=== PATIENT | male | born 1945 | race Caucasian/White ===

== ENCOUNTER 2017-04-23 10:38 | Emergency (ER) | payer BC, OTHER ==
[2017-04-23] MEDS ORDERED: GABA300C10 PO (14:24)
[2017-04-23] MEDS ORDERED: AMLO10TA2 PO (14:24)
== END 2017-04-23 11:04 ==
LOC: ED 10:48
DX: Z02.9 Encounter for administrative examinations, unspecified (principal)

== ENCOUNTER 2017-09-11 17:12 | Inpatient (IN) | payer MEDICARE, OTHER ==
[~2017-09-11] VITALS: Ht 177.8 cm; Wt 80.0 kg
[~2017-09-11 17:12] MED LIST: AMLO10TA2 PO; GABA300C10 PO; HYDR-3240 PO; LISI-170 PO
[2017-09-11] MEDS ORDERED: SODIUM CHLORIDE 0.9% 1,000 ML IV ONE (17:23)
[2017-09-11] MEDS ORDERED: NALOXONE 1 MG/ML, 2ML ONE (17:27)
[2017-09-11] MEDS ORDERED: SODIUM CHLORIDE FLUSH 10ML SYR IVF ONE (17:30)
[2017-09-11] MEDS ORDERED: NALOXONE 1 MG/ML, 2ML IVPush ONE (17:30)
[2017-09-11] MEDS ORDERED: ETOMIDATE 40 MG/20 ML IVPush ONE (17:30)
[2017-09-11] MEDS ORDERED: SUCCINYLCHOLINE 20 MG/ML, 10ML IVPush ONE (17:30)
[2017-09-11] MEDS ORDERED: PROPOFOL 100 ML IV PRN ×2 (17:38→19:49)
[2017-09-11] MEDS ORDERED: PROPOFOL 100 ML IV ONE (17:39)
[2017-09-11 17:53] LABS: ABG COLLECTION SITE LEFT RADIAL; COLLATERAL CIRCULATION TESTING NORMAL; HEMATOCRIT 43.6 % (39.2-51.8); HEMOGLOBIN 14.7 g/dL (13.7-18.0); WHITE BLOOD COUNT 21.2 x10^3/uL (3.4-10)
[2017-09-11] MEDS ORDERED: PROPOFOL 10 MG/ML, 20ML IVPush ONE (18:00)
[2017-09-11 18:03] LABS: BLOOD UREA NITROGEN 14 mg/dL (7-18)
[2017-09-11 18:06] LABS: ASPARTATE AMINO TRANSFERASE 21 U/L (15-37)
[2017-09-11 18:07] LABS: ACETAMINOPHEN < 2 mcg/mL (10-30)
[2017-09-11 18:18] LABS: DIFF TOTAL CELLS COUNTED 100 CELL DIFF
[2017-09-11] MEDS ORDERED: LABETALOL 5MG/ML, 20ML ONE (18:18)
[2017-09-11] MEDS ORDERED: PIPERACILLIN/TAZO/PMX 3.375GM 50 ML ONE (18:18)
[2017-09-11 18:19] LABS: IS PT STATUS REG ER OR PRE ER? YES
[2017-09-11 18:20] LABS: VERIFY COUNTS? YES
[2017-09-11] MEDS ORDERED: VANCOMYCIN 1,700 MG in SODIUM CHLORIDE 0.9% 250 ML IV ONE (18:30)
[2017-09-11] MEDS ORDERED: LABETALOL 5MG/ML, 20ML IVPush ONE (18:30)
[2017-09-11] MEDS ORDERED: VANCOMYCIN PER PHARMACY IV ONE (18:30)
[2017-09-11] MEDS ORDERED: PIPERACILLIN/TAZO/PMX 3.375GM 50 ML IVPB ONE (18:30)
[2017-09-11] MEDS ORDERED: AMLO5TAB2 PO (18:35)
[2017-09-11 18:56] LABS: DAU SCREEN DISCLAIMER
[2017-09-11] MEDS ORDERED: LEVETIRACETAM 1,000 MG in SODIUM CHLORIDE 0.9% 100 ML IV ONE (19:00)
[2017-09-11] MEDS ORDERED: BUDE10.2 INH (19:03)
[2017-09-11] MEDS ORDERED: METO-95 PO (19:05)
[2017-09-11] MEDS ORDERED: MAGN420T PO (19:05)
[2017-09-11] MEDS ORDERED: MULT-257 PO (19:06)
[2017-09-11] MEDS ORDERED: POTA20TA14 PO (19:07)
[2017-09-11] MEDS ORDERED: VALS320T2 PO (19:08)
[2017-09-11] MEDS ORDERED: TROS20TA2 PO (19:08)
[2017-09-11] MEDS ORDERED: ACETAMINOPHEN 650 MG SUPP ONE (19:25)
[2017-09-11] MEDS ORDERED: SENNA/DOCUSATE TABLET NG PRN (19:30)
[2017-09-11] MEDS: ENOXAPARIN 40 MG/0.4 ML SQ SCH (19:30)
[2017-09-11] MEDS ORDERED: ALBUTEROL/IPRATROPIUM 2.5MG/0.5MG, 3 ML INLINE SCH (19:30)
[2017-09-11] MEDS ORDERED: LACTULOSE 20 GM/30 ML UDC NG PRN (19:30)
[2017-09-11] MEDS: PIPERACILLIN/TAZO/PMX 3.375GM 50 ML IV SCH (19:30)
[2017-09-11] MEDS ORDERED: ACETAMINOPHEN 650 MG SUPP PR PRN (19:30)
[2017-09-11] MEDS: methylPREDNISolone SOD SUCC 125 MG/2 ML IVPush SCH (19:30)
[2017-09-11] MEDS: INSULIN ASPART 100 UNITS/ML, PEN SQ-INSULIN SCH (19:30)
[2017-09-11] MEDS ORDERED: DEXTROSE 4 GM TAB.CHEW PO PRN (19:30)
[2017-09-11] MEDS: SODIUM CHLORIDE 0.9% 1,000 ML IV SCH (19:30)
[2017-09-11] MEDS ORDERED: ACETAMINOPHEN 650 MG SUPP PR ONE (19:30)
[2017-09-11] MEDS ORDERED: ACETAMINOPHEN 650 MG/20.3 ML UDC NG PRN (19:30)
[2017-09-11] MEDS ORDERED: GLUCAGON 1 MG IM PRN (19:30)
[2017-09-11] MEDS ORDERED: DEXTROSE 50%, 50ML SYRINGE IVPush PRN (19:30)
[2017-09-11] MEDS ORDERED: BISACODYL 10 MG SUPP PR PRN (19:30)
[2017-09-11] MEDS ORDERED: PHARMACY MAY ADJ FOR RENAL FX MC SCH (19:30)
[2017-09-11] MEDS ORDERED: VANCOMYCIN PER PHARMACY MC PRN (19:30)
[2017-09-11] MEDS ORDERED: LIDOCAINE-MPF 1%, 2ML ENDO PRN (19:30)
[2017-09-11] MEDS ORDERED: SENNOSIDES 8.8 MG/5 ML ORAL SOL NG PRN (19:30)
[2017-09-11] MEDS: ALBUTEROL/IPRATROPIUM 2.5MG/0.5MG, 3 ML INLINE SCH (20:00)
[2017-09-11 20:21] LABS: GLUCOSE, CSF 103 mg/dL (40-80)
[2017-09-11] MEDS: SODIUM CHLORIDE FLUSH 10ML SYR IVF SCH (20:36)
[2017-09-11] MEDS ORDERED: ENOXAPARIN 40 MG/0.4 ML ONE (21:48)
[2017-09-11] MEDS ORDERED: methylPREDNISolone SOD SUCC 125 MG/2 ML ONE (21:48)
[2017-09-11] MEDS ORDERED: ALBUTEROL/IPRATROPIUM 2.5MG/0.5MG, 3 ML ONE (21:58)
[2017-09-12] MEDS ORDERED: ALBUTEROL/IPRATROPIUM 2.5MG/0.5MG, 3 ML ONE (02:15)
[2017-09-12] MEDS: INSULIN ASPART 100 UNITS/ML, PEN SQ-INSULIN SCH ×4 (03:00→20:42)
[2017-09-12 04:00] VITALS: BP 146/78
[2017-09-12] MEDS: methylPREDNISolone SOD SUCC 125 MG/2 ML IVPush SCH ×5 (04:00→21:50)
[2017-09-12] MEDS: ALBUTEROL/IPRATROPIUM 2.5MG/0.5MG, 3 ML INLINE SCH ×7 (04:08→21:37)
[2017-09-12 04:45] LABS: HEMATOCRIT 41.9 % (39.2-51.8); HEMOGLOBIN 14.2 g/dL (13.7-18.0); WHITE BLOOD COUNT 9.9 x10^3/uL (3.4-10)
[2017-09-12] MEDS: SODIUM CHLORIDE 0.9% 1,000 ML IV SCH ×3 (04:49→22:43)
[2017-09-12] MEDS: PIPERACILLIN/TAZO/PMX 3.375GM 50 ML IV SCH ×4 (04:50→21:50)
[2017-09-12 04:55] LABS: BLOOD UREA NITROGEN 14 mg/dL (7-18)
[2017-09-12] MEDS ORDERED: PHARMACOKINETIC MONITORING MC PRN (05:00)
[2017-09-12] MEDS ORDERED: PHARMACOKINETIC CONSULTATION MC ONE (05:00)
[2017-09-12 05:04] LABS: DIFF TOTAL CELLS COUNTED 100 CELL DIFF
[2017-09-12 05:05] LABS: ABG COLLECTION SITE LEFT RADIAL; COLLATERAL CIRCULATION TESTING NORMAL
[2017-09-12 05:08] LABS: VERIFY COUNTS? YES
[2017-09-12 05:09] LABS: ANISOCYTOSIS 1+
[2017-09-12] MEDS: TEMPLATE NON-FORMULARY MED. (Trospium Chloride 20 MG) HOMEMEDPO SCH (09:00)
[2017-09-12] MEDS: METOPROLOL SUCCINATE 50 MG TAB.ER.24H PO SCH (09:00)
[2017-09-12] MEDS: VALSARTAN 320 MG TABLET PO SCH (09:52)
[2017-09-12] MEDS: PANTOPRAZOLE 40 MG IV IV SCH (09:52)
[2017-09-12] MEDS: SODIUM CHLORIDE FLUSH 10ML SYR IVF SCH ×2 (09:52→20:42)
[2017-09-12] MEDS: AMLODIPINE 2.5 MG TABLET PO SCH (09:52)
[2017-09-12] MEDS ORDERED: PROPOFOL 10 MG/ML, 100ML IV ONE (11:18)
[2017-09-12] MEDS ORDERED: SUCCINYLCHOLINE 20 MG/ML, 10ML ONE (11:18)
[2017-09-12] MEDS ORDERED: ETOMIDATE 20 MG/10 ML ONE (11:18)
[2017-09-12] MEDS ORDERED: GADOBUTROL 7.5 MMOL/7.5 ML PFS ONE (12:03)
[2017-09-12] MEDS: PROPOFOL 100 ML IV PRN ×2 (12:30→20:24)
[2017-09-12] MEDS: VANCOMYCIN 1,600 MG in SODIUM CHLORIDE 0.9% 250 ML IV SCH (12:51)
[2017-09-12] MEDS ORDERED: MIDAZOLAM 1 MG/ML, 5ML IVPush ONE (19:00)
[2017-09-12] MEDS: ENOXAPARIN 40 MG/0.4 ML SQ SCH (19:23)
[2017-09-13] MEDS: ALBUTEROL/IPRATROPIUM 2.5MG/0.5MG, 3 ML INLINE SCH ×2 (02:00→06:35)
[2017-09-13] MEDS: PROPOFOL 100 ML IV PRN ×2 (02:03→05:18)
[2017-09-13] MEDS: INSULIN ASPART 100 UNITS/ML, PEN SQ-INSULIN SCH ×4 (03:33→20:41)
[2017-09-13] MEDS: methylPREDNISolone SOD SUCC 125 MG/2 ML IVPush SCH ×4 (04:12→22:59)
[2017-09-13] MEDS: PIPERACILLIN/TAZO/PMX 3.375GM 50 ML IV SCH (04:12)
[2017-09-13 04:20] VITALS: BP 112/62
[2017-09-13 04:42] LABS: ABG COLLECTION SITE LEFT RADIAL; COLLATERAL CIRCULATION TESTING NORMAL
[2017-09-13 04:47] LABS: HEMATOCRIT 35.8 % (39.2-51.8); HEMOGLOBIN 12.2 g/dL (13.7-18.0); WHITE BLOOD COUNT 13.1 x10^3/uL (3.4-10)
[2017-09-13 04:54] LABS: BLOOD UREA NITROGEN 20 mg/dL (7-18)
[2017-09-13] MEDS: SODIUM CHLORIDE 0.9% 1,000 ML IV SCH ×2 (05:16→17:08)
[2017-09-13] MEDS: VANCOMYCIN 1,600 MG in SODIUM CHLORIDE 0.9% 250 ML IV SCH (05:56)
[2017-09-13] MEDS ORDERED: POTASSIUM CHLORIDE 40 MEQ in SODIUM CHLORIDE 0.9% 500 ML IV ONE (06:00)
[2017-09-13] MEDS ORDERED: MAGNESIUM SULFATE PMX 4GM/100M 100 ML IV ONE (07:30)
[2017-09-13] MEDS: TEMPLATE NON-FORMULARY MED. (Trospium Chloride 20 MG) HOMEMEDPO SCH (09:00)
[2017-09-13] MEDS: METOPROLOL SUCCINATE 50 MG TAB.ER.24H PO SCH (09:00)
[2017-09-13] MEDS: PANTOPRAZOLE 40 MG IV IV SCH (09:22)
[2017-09-13] MEDS: SODIUM CHLORIDE FLUSH 10ML SYR IVF SCH ×2 (09:23→20:41)
[2017-09-13] MEDS ORDERED: CEFTRIAXONE PMX 1GM/50ML 50 ML IV SCH (10:00)
[2017-09-13] MEDS: VALSARTAN 320 MG TABLET PO SCH (12:55)
[2017-09-13] MEDS: AMLODIPINE 2.5 MG TABLET PO SCH (12:56)
[2017-09-13] MEDS: CEFTRIAXONE PMX 1GM/50ML 50 ML IV SCH (12:56)
[2017-09-13] MEDS ORDERED: POTASSIUM CHLORIDE 20 MEQ TAB.ER.PRT PO ONE (18:00)
[2017-09-13] MEDS: ENOXAPARIN 40 MG/0.4 ML SQ SCH (19:21)
[2017-09-13] MEDS ORDERED: QUETIAPINE 25MG TABLET PO SCH (21:00)
[2017-09-14] MEDS: SODIUM CHLORIDE 0.9% 1,000 ML IV SCH ×3 (00:09→18:06)
[2017-09-14] MEDS: INSULIN ASPART 100 UNITS/ML, PEN SQ-INSULIN SCH ×3 (02:58→15:00)
[2017-09-14 04:09] VITALS: BP 138/71
[2017-09-14] MEDS: methylPREDNISolone SOD SUCC 125 MG/2 ML IVPush SCH (04:30)
[2017-09-14 04:45] LABS: HEMATOCRIT 37.6 % (39.2-51.8); HEMOGLOBIN 12.8 g/dL (13.7-18.0); WHITE BLOOD COUNT 14.1 x10^3/uL (3.4-10)
[2017-09-14 04:56] LABS: ABG COLLECTION SITE LEFT RADIAL; COLLATERAL CIRCULATION TESTING NORMAL
[2017-09-14 05:02] LABS: BLOOD UREA NITROGEN 17 mg/dL (7-18)
[2017-09-14] MEDS: TEMPLATE NON-FORMULARY MED. (Trospium Chloride 20 MG) HOMEMEDPO SCH (08:13)
[2017-09-14] MEDS: PANTOPRAZOLE 40 MG IV IV SCH (08:15)
[2017-09-14] MEDS: METOPROLOL SUCCINATE 50 MG TAB.ER.24H PO SCH (08:15)
[2017-09-14] MEDS: SODIUM CHLORIDE FLUSH 10ML SYR IVF SCH ×2 (08:15→19:37)
[2017-09-14] MEDS: AMLODIPINE 2.5 MG TABLET PO SCH (08:15)
[2017-09-14] MEDS: VALSARTAN 320 MG TABLET PO SCH (08:15)
[2017-09-14] MEDS: CEFTRIAXONE PMX 1GM/50ML 50 ML IV SCH (10:49)
[2017-09-14] MEDS: methylPREDNISolone SOD SUCC 40 MG/ML IVPush SCH ×2 (13:39→19:36)
[2017-09-14 16:36] VITALS: BP 149/80
[2017-09-14] MEDS: ENOXAPARIN 40 MG/0.4 ML SQ SCH (19:37)
[2017-09-14 20:00] VITALS: BP 158/82
[2017-09-14] MEDS: LORazepam 2 MG/ML, 1ML IVPush PRN ×2 (20:30→23:50)
[2017-09-14] MEDS ORDERED: INSULIN ASPART 100 UNITS/ML, PEN SQ-INSULIN SCH (21:00)
[2017-09-15 02:30] VITALS: BP 153/90
[2017-09-15] MEDS: methylPREDNISolone SOD SUCC 40 MG/ML IVPush SCH (04:20)
[2017-09-15 05:25] LABS: HEMATOCRIT 39.9 % (39.2-51.8); HEMOGLOBIN 13.5 g/dL (13.7-18.0); WHITE BLOOD COUNT 11.8 x10^3/uL (3.4-10)
[2017-09-15 05:30] LABS: BLOOD UREA NITROGEN 23 mg/dL (7-18)
[2017-09-15 07:24] VITALS: BP 166/94
[2017-09-15] MEDS: SODIUM CHLORIDE 0.9% 1,000 ML IV SCH ×2 (09:11→16:04)
[2017-09-15] MEDS: TEMPLATE NON-FORMULARY MED. (Trospium Chloride 20 MG) HOMEMEDPO SCH (09:13)
[2017-09-15] MEDS: METOPROLOL SUCCINATE 50 MG TAB.ER.24H PO SCH (09:13)
[2017-09-15] MEDS: VALSARTAN 320 MG TABLET PO SCH (09:13)
[2017-09-15] MEDS: CEFTRIAXONE PMX 1GM/50ML 50 ML IV SCH (09:13)
[2017-09-15] MEDS: SODIUM CHLORIDE FLUSH 10ML SYR IVF SCH ×2 (09:13→19:30)
[2017-09-15] MEDS: AMLODIPINE 2.5 MG TABLET PO SCH (09:13)
[2017-09-15] MEDS ORDERED: POTASSIUM CHLORIDE 20 MEQ TAB.ER.PRT PO ONE (11:00)
[2017-09-15 14:05] VITALS: BP 145/87
[2017-09-15] MEDS: ENOXAPARIN 40 MG/0.4 ML SQ SCH (19:29)
[2017-09-15] MEDS ORDERED: LACTULOSE 20 GM/30 ML UDC NG PRN ×2 (19:30)
[2017-09-15] MEDS ORDERED: DEXTROSE 50%, 50ML SYRINGE IVPush PRN ×2 (19:30)
[2017-09-15] MEDS ORDERED: BISACODYL 10 MG SUPP PR PRN ×2 (19:30)
[2017-09-15] MEDS ORDERED: SENNA/DOCUSATE TABLET NG PRN ×2 (19:30)
[2017-09-15] MEDS ORDERED: ACETAMINOPHEN 650 MG/20.3 ML UDC NG PRN ×2 (19:30)
[2017-09-15] MEDS ORDERED: ACETAMINOPHEN 650 MG SUPP PR PRN ×2 (19:30)
[2017-09-15 19:42] VITALS: BP 173/92
[2017-09-16 01:16] VITALS: BP 164/83
[2017-09-16 06:01] LABS: HEMATOCRIT 44.1 % (39.2-51.8); HEMOGLOBIN 14.8 g/dL (13.7-18.0)
[2017-09-16 06:23] LABS: BLOOD UREA NITROGEN 27 mg/dL (7-18)
[2017-09-16 07:30] VITALS: BP 155/85
[2017-09-16] MEDS ORDERED: POTASSIUM CHLORIDE 20 MEQ TAB.ER.PRT PO ONE (07:30)
[2017-09-16] MEDS ORDERED: MAGNESIUM SULFATE PMX 2GM/50ML 50 ML IV ONE (07:30)
[2017-09-16] MEDS: VALSARTAN 320 MG TABLET PO SCH (08:44)
[2017-09-16] MEDS: METOPROLOL SUCCINATE 50 MG TAB.ER.24H PO SCH (08:44)
[2017-09-16] MEDS: TEMPLATE NON-FORMULARY MED. (Trospium Chloride 20 MG) HOMEMEDPO SCH (08:45)
[2017-09-16] MEDS: SODIUM CHLORIDE FLUSH 10ML SYR IVF SCH ×2 (08:45→20:35)
[2017-09-16] MEDS: AMLODIPINE 5 MG TABLET PO SCH (08:45)
[2017-09-16] MEDS ORDERED: AMLODIPINE 5 MG TABLET PO SCH (09:00)
[2017-09-16] MEDS: CEFTRIAXONE PMX 1GM/50ML 50 ML IV SCH (11:01)
[2017-09-16 12:34] VITALS: BP 158/79
[2017-09-16] MEDS: DOXAZOSIN 2MG TABLET PO SCH (20:28)
[2017-09-16] MEDS: ENOXAPARIN 40 MG/0.4 ML SQ SCH (20:35)
[2017-09-17 01:30] VITALS: BP 134/78
[2017-09-17 04:42] LABS: HEMATOCRIT 38.1 % (39.2-51.8); WHITE BLOOD COUNT 6.3 x10^3/uL (3.4-10)
[2017-09-17 04:45] LABS: BLOOD UREA NITROGEN 25 mg/dL (7-18)
[2017-09-17 07:08] VITALS: BP 125/64
[2017-09-17] MEDS: TEMPLATE NON-FORMULARY MED. (Trospium Chloride 20 MG) HOMEMEDPO SCH (09:00)
[2017-09-17] MEDS: AMLODIPINE 5 MG TABLET PO SCH (10:43)
[2017-09-17] MEDS: VALSARTAN 320 MG TABLET PO SCH (10:43)
[2017-09-17] MEDS: SODIUM CHLORIDE FLUSH 10ML SYR IVF SCH ×2 (10:43→21:50)
[2017-09-17] MEDS: METOPROLOL SUCCINATE 50 MG TAB.ER.24H PO SCH (10:43)
[2017-09-17] MEDS: CEFTRIAXONE PMX 1GM/50ML 50 ML IV SCH (11:42)
[2017-09-17 13:11] VITALS: BP 131/76
[2017-09-17 13:39] VITALS: BP 135/86
[2017-09-17 20:00] VITALS: BP 137/88
[2017-09-17] MEDS ORDERED: ENOXAPARIN 40 MG/0.4 ML SQ SCH (20:00)
[2017-09-17] MEDS: DOXAZOSIN 2MG TABLET PO SCH (21:50)
[2017-09-18 01:10] VITALS: BP 129/82
[2017-09-18 04:45] LABS: HEMATOCRIT 38.7 % (39.2-51.8); HEMOGLOBIN 13.1 g/dL (13.7-18.0)
[2017-09-18 04:55] LABS: BLOOD UREA NITROGEN 22 mg/dL (7-18)
[2017-09-18] MEDS ORDERED: MAGNESIUM SULFATE PMX 4GM/100M 100 ML IV ONE (07:30)
[2017-09-18 07:43] VITALS: BP 163/92
[2017-09-18] MEDS ORDERED: POTASSIUM CHLORIDE 20 MEQ TAB.ER.PRT PO SCH (08:00)
[2017-09-18] MEDS: VALSARTAN 320 MG TABLET PO SCH (08:40)
[2017-09-18] MEDS: AMLODIPINE 5 MG TABLET PO SCH (08:40)
[2017-09-18] MEDS: SODIUM CHLORIDE FLUSH 10ML SYR IVF SCH (08:41)
[2017-09-18] MEDS: TEMPLATE NON-FORMULARY MED. (Trospium Chloride 20 MG) HOMEMEDPO SCH (08:41)
[2017-09-18] MEDS: METOPROLOL SUCCINATE 50 MG TAB.ER.24H PO SCH (08:41)
[2017-09-18] MEDS ORDERED: ENOX40SY4 SQ (11:42)
[2017-09-18] MEDS ORDERED: DOXA2TAB9 PO (11:42)
[2017-09-18] MEDS ORDERED: AMLO5TAB2 PO (11:42)
[2017-09-18] MEDS ORDERED: METO-93 PO (11:42)
[2017-09-18] MEDS ORDERED: CEFD300C37 PO (11:43)
[2017-09-18] MEDS: CEFTRIAXONE PMX 1GM/50ML 50 ML IV SCH (12:00)
[2017-09-18 12:56] VITALS: BP 142/83
== END 2017-09-18 19:00 | DRG 208 ==
LOC: ED 19:05 → SUATTDRO 19:06 → EDIP 19:10 → ED 19:17 → CCU 09-12 04:01 → 4NOR 09-14 16:04 → 3NW 09-16 19:15
PROVIDERS: ADMIT Hospitalist; ATTEND Hospitalist
PROC: 0BH17EZ Insertion of Endotracheal Airway into Trachea, Via Natural or Artificial Opening (ICD-10-PCS; principal; 2017-09-11)
PROC: 5A1945Z Respiratory Ventilation, 24-96 Consecutive Hours (ICD-10-PCS; 2017-09-11)
PROC: 009U3ZX Drainage of Spinal Canal, Percutaneous Approach, Diagnostic (ICD-10-PCS; 2017-09-11)
PROC: 0T9B70Z Drainage of Bladder with Drainage Device, Via Natural or Artificial Opening (ICD-10-PCS; 2017-09-11)
DX: J96.01 Acute respiratory failure with hypoxia (principal); J14 Pneumonia due to Hemophilus influenzae; Z99.11 Dependence on respirator [ventilator] status; E87.4 Mixed disorder of acid-base balance; I67.4 Hypertensive encephalopathy; I67.89 Other cerebrovascular disease; R65.10 Systemic inflammatory response syndrome (SIRS) of non-infectious origin without acute organ dysfunction; R56.9 Unspecified convulsions; J44.0 Chronic obstructive pulmonary disease with (acute) lower respiratory infection; D75.89 Other specified diseases of blood and blood-forming organs; E04.1 Nontoxic single thyroid nodule; E78.5 Hyperlipidemia, unspecified; F17.210 Nicotine dependence, cigarettes, uncomplicated; I11.9 Hypertensive heart disease without heart failure; I16.0 Hypertensive urgency; N40.0 Benign prostatic hyperplasia without lower urinary tract symptoms; Z85.820 Personal history of malignant melanoma of skin; Z86.73 Personal history of transient ischemic attack (TIA), and cerebral infarction without residual deficits; F10.20 Alcohol dependence, uncomplicated; J32.9 Chronic sinusitis, unspecified
CPT/HCPCS: 31500; 36415; 36600; 62270; 70450; 70553; 71010; 80048; 80053; 80307; 80329; 81001; 82140; 82550; 82607; 82746; 82803; 82945; 82962; 83605; 83735; 83880; 84157; 84439; 84443; 84478; 84484; 85025; 85610; 85730; 87040; 87070; 87081; 87205; 87252; 89051; 93005; 93306; 94002; 94003; 94150; 94640; 96361; 96365; 96367; 96375; A9585; J0696; J1650; J1815; J1953; J2250; J2543; J2704; J3370; J3480; J7620; C9113; G0479; G0480; J0330; J2060; J2310; J2920; J2930; J3475; J7030; J7040; J7050

== ENCOUNTER 2018-07-08 16:47 | Inpatient (IN) | payer MEDICARE, OTHER ==
[~2018-07-08] VITALS: Ht 182.9 cm; Wt 84.3 kg
[~2018-07-08 16:47] MED LIST changes: +AMLO5TAB2 PO; +BUDE10.2 INH; +CEFD300C37 PO; +DOXA2TAB9 PO; +ENOX40SY4 SQ; +ETOMIDATE 20 MG/10 ML ONE; +MAGN420T PO; +METO-93 PO; +METO-95 PO; +MULT-257 PO; +POTA20TA14 PO; +PROPOFOL 10 MG/ML, 100ML IV ONE; +SUCCINYLCHOLINE 20 MG/ML, 10ML ONE; +TROS20TA2 PO; +VALS320T2 PO
[2018-07-08] MEDS ORDERED: VIT1TABL46 PO (17:50)
[2018-07-08] MEDS ORDERED: ASPI-496 PO (17:50)
[2018-07-08] MEDS ORDERED: FLUO30CR TP (17:50)
[2018-07-08] MEDS ORDERED: SODIUM CHLORIDE 0.9% 1,000 ML IV ONE (19:08)
[2018-07-08 20:00] LABS: BASOPHILS # (AUTO) 0.03 x10^3/uL (0-0.1); BASOPHILS % (AUTO) 0 % (0-1); EOSINOPHILS % (AUTO) 0 % (1-7); LYMPHOCYTES # (AUTO) 0.36 x10^3/uL (1-3.4); LYMPHOCYTES % (AUTO) 4 % (22-44); MD NO; MEAN CORPUSCULAR HEMOGLOBIN 36.2 pg (27.5-34.5); MEAN CORPUSCULAR HGB CONC 34.2 g/dL (33.2-36.2); MEAN CORPUSCULAR VOLUME 105.8 fL (81-97); MEAN PLATELET VOLUME 7.5 fL (7.4-10.4); MONOCYTES % (AUTO) 5 % (2-9); NEUTROPHILS # (AUTO) 8.17 x10^3/uL (1.8-6.8); NEUTROPHILS % (AUTO) 91 % (42-75); PLATELET COUNT 235 x10^3/uL (130-400); RED BLOOD COUNT 3.37 x10^6/uL (4.38-5.82); RED CELL DISTRIBUTION WIDTH 18.1 % (9.4-14.8)
[2018-07-08 20:01] LABS: INTERNATIONAL NORMALIZED RATIO 0.93 (0.93-1.1); PROTHROMBIN TIME 9.6 Seconds (9.6-11.5)
[2018-07-08 20:02] LABS: ALANINE AMINOTRANSFERASE 54 U/L (12-78); ANION GAP 12 mmol/L (5-15); CALCIUM 7.7 mg/dL (8.5-10.1); CHLORIDE 103 mmol/L (98-107); CREATININE 1.11 mg/dL (0.7-1.3)
[2018-07-08 20:06] LABS: ALKALINE PHOSPHATASE 107 U/L (45-117); BILIRUBIN,TOTAL 1.4 mg/dL (0.2-1.0); TOTAL PROTEIN 6.5 g/dL (6.4-8.2); TROPONIN I < 0.015 ng/mL (0.000-0.045)
[2018-07-08 21:17] LABS: CULTURE INDICATED? NO; MICROSCOPIC INDICATED
[2018-07-08] MEDS ORDERED: ASPIRIN 325 MG TABLET PO STA (21:29)
[2018-07-09] MEDS: LORazepam 2 MG/ML, 1ML IV PRN (01:22)
[2018-07-09] MEDS ORDERED: THIAMINE 100 MG in SODIUM CHLORIDE 0.9% 50 ML IV ONE (01:30)
[2018-07-09] MEDS ORDERED: ACETAMINOPHEN 325 MG TABLET PO PRN (01:30)
[2018-07-09] MEDS ORDERED: DEXTROSE 50%, 50ML SYRINGE IVPush ONE (01:30)
[2018-07-09 01:46] VITALS: BP 171/102
[2018-07-09] MEDS: LEVETIRACETAM 1,000 MG in SODIUM CHLORIDE 0.9% 100 ML IV SCH ×2 (01:52→16:30)
[2018-07-09] MEDS: SODIUM CHLORIDE 0.9% 1,000 ML IV SCH ×2 (01:52→17:50)
[2018-07-09] MEDS ORDERED: PHARMACOKINETIC MONITORING MC PRN (02:00)
[2018-07-09] MEDS ORDERED: PHARMACOKINETIC CONSULTATION MC ONE (02:00)
[2018-07-09] MEDS ORDERED: VANCOMYCIN PER PHARMACY MC PRN (02:00)
[2018-07-09 02:01] VITALS: BP 154/89
[2018-07-09] MEDS: PIPERACILLIN/TAZO/PMX 3.375GM 50 ML IV SCH ×2 (02:19→10:00)
[2018-07-09] MEDS: VANCOMYCIN 1,300 MG in SODIUM CHLORIDE 0.9% 250 ML IV SCH (02:25)
[2018-07-09 02:27] VITALS: BP 170/97
[2018-07-09] MEDS ORDERED: SODIUM CHLORIDE 0.9% 1,000ML IVBOLUS ONE (05:00)
[2018-07-09] MEDS: ASPIRIN 325 MG TABLET EC PO SCH (06:00)
[2018-07-09] MEDS ORDERED: ASPI-621 PO (06:38)
[2018-07-09] MEDS ORDERED: AMLO5TAB2 PO (06:38)
[2018-07-09] MEDS ORDERED: METO-290 PO (06:38)
[2018-07-09 06:43] VITALS: BP 138/77
[2018-07-09 06:55] LABS: AMPHETAMINE SCREEN, URINE Negative (Negative); BARBITURATE SCREEN, URINE Negative (Negative); BENZODIAZEPINE SCREEN, URINE Negative (Negative); CANNABINOID SCREEN, URINE Negative (Negative); COCAINE SCREEN, URINE Negative (Negative); METHADONE SCREEN, URINE Negative (Negative); OPIATE SCREEN, URINE Negative (Negative)
[2018-07-09] MEDS: ASPIRIN 81 MG TABLET CHEW PO/NG SCH (08:06)
[2018-07-09 12:09] VITALS: BP 131/78
[2018-07-09 19:57] VITALS: BP 179/102
[2018-07-09] MEDS: ATORVASTATIN 40 MG TABLET PO SCH (20:19)
[2018-07-10] VITALS (12 sets, daily range): BP systolic 121–181; BP diastolic 51–100
[2018-07-10] MEDS: LEVETIRACETAM 1,000 MG in SODIUM CHLORIDE 0.9% 100 ML IV SCH ×2 (02:04→13:46)
[2018-07-10] MEDS: VANCOMYCIN 1,300 MG in SODIUM CHLORIDE 0.9% 250 ML IV SCH (02:28)
[2018-07-10] MEDS: ASPIRIN 325 MG TABLET EC PO SCH (05:09)
[2018-07-10 06:00] LABS: BASOPHILS # (AUTO) 0.02 x10^3/uL (0-0.1); BASOPHILS % (AUTO) 0 % (0-1); EOSINOPHILS # (AUTO) 0.03 x10^3/uL (0-0.4); EOSINOPHILS % (AUTO) 1 % (1-7); LYMPHOCYTES # (AUTO) 1.19 x10^3/uL (1-3.4); LYMPHOCYTES % (AUTO) 19 % (22-44); MD NO; MEAN CORPUSCULAR HEMOGLOBIN 36.2 pg (27.5-34.5); MEAN CORPUSCULAR HGB CONC 33.9 g/dL (33.2-36.2); MEAN CORPUSCULAR VOLUME 106.7 fL (81-97); MEAN PLATELET VOLUME 7.3 fL (7.4-10.4); MONOCYTES # (AUTO) 0.51 x10^3/uL (0.2-0.8); MONOCYTES % (AUTO) 8 % (2-9); NEUTROPHILS # (AUTO) 4.46 x10^3/uL (1.8-6.8); NEUTROPHILS % (AUTO) 72 % (42-75); PLATELET COUNT 168 x10^3/uL (130-400); RED BLOOD COUNT 2.83 x10^6/uL (4.38-5.82); RED CELL DISTRIBUTION WIDTH 18.6 % (9.4-14.8)
[2018-07-10 06:12] LABS: ANION GAP 11 mmol/L (5-15); CALCIUM 7.3 mg/dL (8.5-10.1); CHLORIDE 107 mmol/L (98-107); CHOLESTEROL, TOTAL 129 mg/dL (140-239); CREATININE 0.67 mg/dL (0.7-1.3); TRIGLYCERIDES 86 mg/dL (50-200); VLDL CHOLESTEROL 17 mg/dL (0-25)
[2018-07-10 06:14] LABS: CHOL/HDL RATIO 1.6; HDL CHOL % 64 % (26-37); HDL CHOLESTEROL (DIRECT) 83 mg/dL (40-60); LDL CHOLESTEROL,CALCULATED 29 mg/dL (54-169); LDL/HDL RATIO 0.3 (0.5-3.0)
[2018-07-10] MEDS: ASPIRIN 81 MG TABLET CHEW PO/NG SCH (08:31)
[2018-07-10] MEDS: SODIUM CHLORIDE 0.9% 1,000 ML IV SCH (09:47)
[2018-07-10] MEDS: POTASSIUM CHLORIDE 20 MEQ TAB.ER.PRT PO SCH ×3 (14:23→18:30)
[2018-07-10] MEDS: ATORVASTATIN 40 MG TABLET PO SCH (21:00)
[2018-07-10] MEDS ORDERED: LEVETIRACETAM 500 MG TABLET PO SCH (21:00)
[2018-07-10] MEDS: LEVETIRACETAM 500 MG in SODIUM CHLORIDE 0.9% 100 ML IV SCH (22:00)
[2018-07-10] MEDS ORDERED: POTASSIUM CHLORIDE 40 MEQ in SODIUM CHLORIDE 0.9% 500 ML IV ONE (23:30)
[2018-07-11] VITALS (9 sets, daily range): BP systolic 145–205; BP diastolic 85–118
[2018-07-11] MEDS: VANCOMYCIN 1,300 MG in SODIUM CHLORIDE 0.9% 250 ML IV SCH (02:23)
[2018-07-11] MEDS: LABETALOL 5MG/ML, 20ML IVPush PRN ×2 (02:51→05:44)
[2018-07-11] MEDS: ASPIRIN 325 MG TABLET EC PO SCH (05:38)
[2018-07-11 05:45] LABS: CHLORIDE 113 mmol/L (98-107)
[2018-07-11 05:57] LABS: ANION GAP 10 mmol/L (5-15); CREATININE 1.06 mg/dL (0.7-1.3)
[2018-07-11] MEDS: ENALAPRILAT 1.25 MG/ML, 2ML IV PRN ×2 (07:41→12:53)
[2018-07-11] MEDS: SODIUM CHLORIDE 0.45% 1,000 ML IV SCH ×2 (07:44→17:58)
[2018-07-11] MEDS: LEVETIRACETAM 500 MG in SODIUM CHLORIDE 0.9% 100 ML IV SCH ×2 (11:45→23:06)
[2018-07-11] MEDS: ASPIRIN 81 MG TABLET CHEW PO/NG SCH (11:45)
[2018-07-11] MEDS ORDERED: PHARMACOKINETIC MONITORING MC PRN (17:00)
[2018-07-11] MEDS ORDERED: VANCOMYCIN PER PHARMACY MC PRN (17:00)
[2018-07-11] MEDS ORDERED: BISACODYL 10 MG SUPP PR PRN (19:00)
[2018-07-11] MEDS ORDERED: POLYETHYLENE GLYCOL 17 GM PACKET NG PRN (19:00)
[2018-07-11] MEDS: ATORVASTATIN 40 MG TABLET PO SCH (20:28)
[2018-07-12 00:29] VITALS: BP 175/101
[2018-07-12] MEDS: ENALAPRILAT 1.25 MG/ML, 2ML IV PRN ×2 (02:04→10:52)
[2018-07-12] MEDS: SODIUM CHLORIDE 0.45% 1,000 ML IV SCH ×2 (02:10→10:50)
[2018-07-12] MEDS ORDERED: VANCOMYCIN 1,300 MG in SODIUM CHLORIDE 0.9% 250 ML IV SCH (02:30)
[2018-07-12] MEDS ORDERED: LORazepam 2 MG/ML, 1ML IVPush PRN (02:30)
[2018-07-12 04:05] LABS: BASOPHILS # (AUTO) 0.02 x10^3/uL (0-0.1); BASOPHILS % (AUTO) 0 % (0-1); EOSINOPHILS # (AUTO) 0.04 x10^3/uL (0-0.4); EOSINOPHILS % (AUTO) 1 % (1-7); LYMPHOCYTES % (AUTO) 17 % (22-44); MD NO; MEAN CORPUSCULAR HEMOGLOBIN 36.5 pg (27.5-34.5); MEAN CORPUSCULAR HGB CONC 34.2 g/dL (33.2-36.2); MEAN CORPUSCULAR VOLUME 106.8 fL (81-97); MEAN PLATELET VOLUME 7.7 fL (7.4-10.4); MONOCYTES % (AUTO) 11 % (2-9); NEUTROPHILS # (AUTO) 4.49 x10^3/uL (1.8-6.8); NEUTROPHILS % (AUTO) 71 % (42-75); PLATELET COUNT 184 x10^3/uL (130-400); RED BLOOD COUNT 2.95 x10^6/uL (4.38-5.82); RED CELL DISTRIBUTION WIDTH 18.1 % (9.4-14.8)
[2018-07-12 05:00] LABS: ALANINE AMINOTRANSFERASE 53 U/L (12-78); ALBUMIN 2.4 g/dL (3.4-5.0); ANION GAP 7 mmol/L (5-15); CALCIUM 7.9 mg/dL (8.5-10.1); CHLORIDE 109 mmol/L (98-107)
[2018-07-12 05:02] LABS: ALKALINE PHOSPHATASE 80 U/L (45-117); BILIRUBIN,TOTAL 0.7 mg/dL (0.2-1.0); CREATININE 1.19 mg/dL (0.7-1.3); TOTAL PROTEIN 5.4 g/dL (6.4-8.2)
[2018-07-12 07:57] VITALS: BP 170/98
[2018-07-12] MEDS: ASPIRIN 81 MG TABLET CHEW PO/NG SCH (09:00)
[2018-07-12 10:50] VITALS: BP 182/98
[2018-07-12] MEDS: LEVETIRACETAM 500 MG in SODIUM CHLORIDE 0.9% 100 ML IV SCH (10:50)
[2018-07-12] MEDS: LORazepam 2 MG/ML, 1ML IV PRN (11:17)
[2018-07-12 11:26] VITALS: BP 163/93
[2018-07-12] MEDS ORDERED: LORazepam 2 MG/ML, 1ML IVPush ONE ×2 (11:30→12:00)
[2018-07-12] MEDS ORDERED: LEVETIRACETAM 1,000 MG in SODIUM CHLORIDE 0.9% 100 ML IV ONE (11:30)
[2018-07-12] MEDS ORDERED: LEVETIRACETAM 1,500 MG in SODIUM CHLORIDE 0.9% 100 ML IVPB SCH (11:30)
[2018-07-12] MEDS ORDERED: LEVETIRACETAM 500 MG in SODIUM CHLORIDE 0.9% 100 ML IV ONE (11:30)
[2018-07-12] MEDS ORDERED: PHENYTOIN SODIUM 1,000 MG in SODIUM CHLORIDE 0.9% 100 ML IV ONE (12:30)
[2018-07-12] MEDS ORDERED: CEFTRIAXONE 2 GM in SODIUM CHLORIDE 0.9% 50 ML IV SCH (12:30)
[2018-07-12] MEDS: AMPICILLIN/SULBACTAM 3 GM in SODIUM CHLORIDE 0.9% 100 ML IV SCH ×2 (12:55→18:24)
[2018-07-12] MEDS ORDERED: FILTER 0.22 MICRON IV ONE (13:00)
[2018-07-12] MEDS ORDERED: LIDOCAINE-MPF 1%, 2ML ENDO PRN (13:00)
[2018-07-12 13:50] LABS: FIO2 50 %
[2018-07-12] MEDS: PROPOFOL 100 ML IV PRN ×2 (14:31→22:41)
[2018-07-12] MEDS: HEPARIN 5,000 UNITS/ML, 1ML SQ SCH (15:57)
[2018-07-12] MEDS: POTASSIUM CHLORIDE 20 MEQ, MAGNESIUM SULFATE 1 GM, MVI ADULT 10 ML, THIAMINE 200 MG, FO... IV SCH (15:58)
[2018-07-12] MEDS: ATORVASTATIN 40 MG TABLET PO SCH (21:09)
[2018-07-12] MEDS: LEVETIRACETAM 1,000 MG in SODIUM CHLORIDE 0.9% 100 ML IV SCH (21:10)
[2018-07-13] MEDS: HEPARIN 5,000 UNITS/ML, 1ML SQ SCH ×3 (00:10→16:29)
[2018-07-13] MEDS: AMPICILLIN/SULBACTAM 3 GM in SODIUM CHLORIDE 0.9% 100 ML IV SCH ×3 (00:38→14:00)
[2018-07-13 04:34] LABS: BASOPHILS # (AUTO) 0.03 x10^3/uL (0-0.1); BASOPHILS % (AUTO) 0 % (0-1); EOSINOPHILS # (AUTO) 0.12 x10^3/uL (0-0.4); EOSINOPHILS % (AUTO) 2 % (1-7); LYMPHOCYTES # (AUTO) 0.59 x10^3/uL (1-3.4); LYMPHOCYTES % (AUTO) 8 % (22-44); MD NO; MEAN CORPUSCULAR HEMOGLOBIN 36.2 pg (27.5-34.5); MEAN CORPUSCULAR VOLUME 106.3 fL (81-97); MEAN PLATELET VOLUME 7.5 fL (7.4-10.4); MONOCYTES # (AUTO) 0.82 x10^3/uL (0.2-0.8); MONOCYTES % (AUTO) 11 % (2-9); NEUTROPHILS # (AUTO) 5.77 x10^3/uL (1.8-6.8); NEUTROPHILS % (AUTO) 79 % (42-75); PLATELET COUNT 171 x10^3/uL (130-400); RED BLOOD COUNT 3.11 x10^6/uL (4.38-5.82); RED CELL DISTRIBUTION WIDTH 18.2 % (9.4-14.8)
[2018-07-13 04:41] LABS: ANION GAP 7 mmol/L (5-15); CALCIUM 7.3 mg/dL (8.5-10.1); CHLORIDE 110 mmol/L (98-107); CREATININE 1.21 mg/dL (0.7-1.3)
[2018-07-13] MEDS ORDERED: MAGNESIUM SULFATE 4 GM in SODIUM CHLORIDE 0.9% 100 ML IV ONE (07:30)
[2018-07-13] MEDS: ASPIRIN 81 MG TABLET CHEW PO/NG SCH (08:37)
[2018-07-13] MEDS: LEVETIRACETAM 1,000 MG in SODIUM CHLORIDE 0.9% 100 ML IV SCH ×2 (10:14→20:59)
[2018-07-13] MEDS: DIAZEPAM 5 MG/ML, 10ML VIAL IVPush SCH ×4 (10:30→22:47)
[2018-07-13] MEDS ORDERED: SODIUM CHLORIDE 0.9% 1,000ML IVBOLUS ONE ×2 (12:30→15:00)
[2018-07-13] MEDS ORDERED: VANCOMYCIN 1,300 MG in SODIUM CHLORIDE 0.9% 250 ML IV SCH (14:30)
[2018-07-13 16:07] LABS: FOLATE LEVEL 8.5 ng/mL (3.1-17.5)
[2018-07-13] MEDS: POTASSIUM CHLORIDE 20 MEQ, MAGNESIUM SULFATE 1 GM, MVI ADULT 10 ML, THIAMINE 200 MG, FO... IV SCH (16:28)
[2018-07-13] MEDS: CEFTRIAXONE 2 GM in SODIUM CHLORIDE 0.9% 50 ML IV SCH (17:36)
[2018-07-13] MEDS ORDERED: POTASSIUM CHLORIDE 10% 20 MEQ/15 ML UDC PO ONE (19:00)
[2018-07-13] MEDS ORDERED: FUROSEMIDE 20 MG/2 ML IV ONE (19:00)
[2018-07-13] MEDS: ATORVASTATIN 40 MG TABLET PO SCH (20:59)
[2018-07-14] MEDS: HEPARIN 5,000 UNITS/ML, 1ML SQ SCH ×3 (00:44→16:24)
[2018-07-14] MEDS: DIAZEPAM 5 MG/ML, 10ML VIAL IVPush SCH ×6 (02:52→22:56)
[2018-07-14 04:43] LABS: BASOPHILS # (AUTO) 0.01 x10^3/uL (0-0.1); BASOPHILS % (AUTO) 0 % (0-1); EOSINOPHILS # (AUTO) 0.18 x10^3/uL (0-0.4); EOSINOPHILS % (AUTO) 3 % (1-7); LYMPHOCYTES # (AUTO) 0.37 x10^3/uL (1-3.4); LYMPHOCYTES % (AUTO) 5 % (22-44); MD NO; MEAN CORPUSCULAR HEMOGLOBIN 35.6 pg (27.5-34.5); MEAN CORPUSCULAR HGB CONC 33.8 g/dL (33.2-36.2); MEAN CORPUSCULAR VOLUME 105.3 fL (81-97); MEAN PLATELET VOLUME 7.7 fL (7.4-10.4); MONOCYTES # (AUTO) 0.75 x10^3/uL (0.2-0.8); MONOCYTES % (AUTO) 11 % (2-9); NEUTROPHILS # (AUTO) 5.81 x10^3/uL (1.8-6.8); NEUTROPHILS % (AUTO) 82 % (42-75); PLATELET COUNT 186 x10^3/uL (130-400); RED BLOOD COUNT 3.06 x10^6/uL (4.38-5.82)
[2018-07-14 04:49] LABS: ANION GAP 8 mmol/L (5-15); CALCIUM 7.2 mg/dL (8.5-10.1); CHLORIDE 111 mmol/L (98-107); CREATININE 1.35 mg/dL (0.7-1.3)
[2018-07-14] MEDS: ASPIRIN 81 MG TABLET CHEW PO/NG SCH (07:49)
[2018-07-14] MEDS: SODIUM CHLORIDE 0.45% 1,000 ML IV SCH (07:51)
[2018-07-14] MEDS ORDERED: ERGOCALCIFEROL 50,000 UNIT CAPSULE PO SCH (09:00)
[2018-07-14] MEDS: LEVETIRACETAM 1,000 MG in SODIUM CHLORIDE 0.9% 100 ML IV SCH ×2 (10:30→20:38)
[2018-07-14] MEDS: POTASSIUM CHLORIDE 20 MEQ, MAGNESIUM SULFATE 1 GM, MVI ADULT 10 ML, THIAMINE 200 MG, FO... IV SCH (16:24)
[2018-07-14] MEDS ORDERED: SODIUM CHLORIDE 0.9% 2,000 ML IV SCH (16:30)
[2018-07-14] MEDS: CEFTRIAXONE 2 GM in SODIUM CHLORIDE 0.9% 50 ML IV SCH (17:24)
[2018-07-14] MEDS: ATORVASTATIN 40 MG TABLET PO SCH (20:37)
[2018-07-14] MEDS: PROPOFOL 100 ML IV PRN (20:50)
[2018-07-15] MEDS: HEPARIN 5,000 UNITS/ML, 1ML SQ SCH ×3 (00:44→16:12)
[2018-07-15] MEDS: DIAZEPAM 5 MG/ML, 10ML VIAL IVPush SCH ×6 (02:48→23:07)
[2018-07-15] MEDS: PROPOFOL 100 ML IV PRN ×3 (03:02→16:48)
[2018-07-15] MEDS: SODIUM CHLORIDE 0.45% 1,000 ML IV SCH ×2 (05:02→16:53)
[2018-07-15 05:15] LABS: ANION GAP 8 mmol/L (5-15); CHLORIDE 114 mmol/L (98-107); CREATININE 1.19 mg/dL (0.7-1.3)
[2018-07-15 05:20] LABS: BASOPHILS # (AUTO) 0.01 x10^3/uL (0-0.1); BASOPHILS % (AUTO) 0 % (0-1); EOSINOPHILS # (AUTO) 0.28 x10^3/uL (0-0.4); EOSINOPHILS % (AUTO) 5 % (1-7); LYMPHOCYTES # (AUTO) 0.78 x10^3/uL (1-3.4); LYMPHOCYTES % (AUTO) 14 % (22-44); MD NO; MEAN CORPUSCULAR HEMOGLOBIN 36.3 pg (27.5-34.5); MEAN CORPUSCULAR HGB CONC 33.9 g/dL (33.2-36.2); MEAN CORPUSCULAR VOLUME 107.1 fL (81-97); MEAN PLATELET VOLUME 7.9 fL (7.4-10.4); MONOCYTES # (AUTO) 0.99 x10^3/uL (0.2-0.8); MONOCYTES % (AUTO) 18 % (2-9); NEUTROPHILS % (AUTO) 63 % (42-75); PLATELET COUNT 174 x10^3/uL (130-400); RED BLOOD COUNT 2.59 x10^6/uL (4.38-5.82); RED CELL DISTRIBUTION WIDTH 18.5 % (9.4-14.8)
[2018-07-15] MEDS: POTASSIUM CHLORIDE 10% 40 MEQ/30 ML UDC PO SCH ×2 (08:35→21:02)
[2018-07-15] MEDS: FAMOTIDINE 20 MG/2 ML IVPush SCH ×2 (08:35→21:02)
[2018-07-15] MEDS: ASPIRIN 81 MG TABLET CHEW PO/NG SCH (08:35)
[2018-07-15] MEDS: LEVETIRACETAM 1,000 MG in SODIUM CHLORIDE 0.9% 100 ML IV SCH ×2 (10:02→20:56)
[2018-07-15] MEDS: POTASSIUM CHLORIDE 20 MEQ, MAGNESIUM SULFATE 1 GM, MVI ADULT 10 ML, THIAMINE 200 MG, FO... IV SCH (16:48)
[2018-07-15] MEDS: CEFTRIAXONE 2 GM in SODIUM CHLORIDE 0.9% 50 ML IV SCH (16:53)
[2018-07-15] MEDS: ATORVASTATIN 40 MG TABLET PO SCH (20:56)
[2018-07-16] MEDS: DIAZEPAM 5 MG/ML, 10ML VIAL IVPush SCH ×6 (02:53→22:30)
[2018-07-16] MEDS: PROPOFOL 100 ML IV PRN ×5 (02:56→20:25)
[2018-07-16 04:52] LABS: BASOPHILS # (AUTO) 0.03 x10^3/uL (0-0.1); BASOPHILS % (AUTO) 1 % (0-1); EOSINOPHILS # (AUTO) 0.13 x10^3/uL (0-0.4); EOSINOPHILS % (AUTO) 2 % (1-7); LYMPHOCYTES # (AUTO) 0.82 x10^3/uL (1-3.4); LYMPHOCYTES % (AUTO) 12 % (22-44); MD NO; MEAN CORPUSCULAR HEMOGLOBIN 35.3 pg (27.5-34.5); MEAN CORPUSCULAR HGB CONC 33.2 g/dL (33.2-36.2); MEAN CORPUSCULAR VOLUME 106.3 fL (81-97); MEAN PLATELET VOLUME 8.4 fL (7.4-10.4); MONOCYTES # (AUTO) 0.94 x10^3/uL (0.2-0.8); MONOCYTES % (AUTO) 14 % (2-9); NEUTROPHILS # (AUTO) 4.89 x10^3/uL (1.8-6.8); NEUTROPHILS % (AUTO) 72 % (42-75); PLATELET COUNT 241 x10^3/uL (130-400); RED CELL DISTRIBUTION WIDTH 18.2 % (9.4-14.8)
[2018-07-16 05:02] LABS: ANION GAP 6 mmol/L (5-15); CHLORIDE 113 mmol/L (98-107)
[2018-07-16 05:03] LABS: CALCIUM 7.3 mg/dL (8.5-10.1); CREATININE 1.39 mg/dL (0.7-1.3); TRIGLYCERIDES 72 mg/dL (50-200)
[2018-07-16] MEDS: HEPARIN 5,000 UNITS/ML, 1ML SQ SCH ×4 (07:45→22:12)
[2018-07-16] MEDS: FAMOTIDINE 20 MG/2 ML IVPush SCH ×2 (07:47→22:12)
[2018-07-16] MEDS: LEVETIRACETAM 1,000 MG in SODIUM CHLORIDE 0.9% 100 ML IV SCH ×2 (09:44→22:12)
[2018-07-16] MEDS: ASPIRIN 81 MG TABLET CHEW PO/NG SCH (10:00)
[2018-07-16] MEDS ORDERED: MVI ADULT 10 ML, THIAMINE 200 MG, FOLIC ACID 1 MG in SODIUM CHLORIDE 0.45% 1,000 ML IV ONE (17:00)
[2018-07-16] MEDS: CEFTRIAXONE 2 GM in SODIUM CHLORIDE 0.9% 50 ML IV SCH (17:00)
[2018-07-16] MEDS: ATORVASTATIN 40 MG TABLET PO SCH (22:12)
[2018-07-17] MEDS: PROPOFOL 100 ML IV PRN ×2 (01:09→05:41)
[2018-07-17] MEDS: SODIUM CHLORIDE 0.45% 1,000 ML IV SCH (02:00)
[2018-07-17] MEDS: DIAZEPAM 5 MG/ML, 10ML VIAL IVPush SCH ×4 (02:30→14:31)
[2018-07-17 05:06] LABS: CHLORIDE 114 mmol/L (98-107)
[2018-07-17 05:13] LABS: BASOPHILS # (AUTO) 0.01 x10^3/uL (0-0.1); BASOPHILS % (AUTO) 0 % (0-1); EOSINOPHILS # (AUTO) 0.18 x10^3/uL (0-0.4); EOSINOPHILS % (AUTO) 3 % (1-7); LYMPHOCYTES # (AUTO) 1.31 x10^3/uL (1-3.4); LYMPHOCYTES % (AUTO) 20 % (22-44); MD NO; MEAN CORPUSCULAR HEMOGLOBIN 36.4 pg (27.5-34.5); MEAN CORPUSCULAR HGB CONC 33.8 g/dL (33.2-36.2); MEAN CORPUSCULAR VOLUME 107.5 fL (81-97); MEAN PLATELET VOLUME 8.5 fL (7.4-10.4); MONOCYTES # (AUTO) 1.01 x10^3/uL (0.2-0.8); MONOCYTES % (AUTO) 16 % (2-9); NEUTROPHILS # (AUTO) 3.89 x10^3/uL (1.8-6.8); NEUTROPHILS % (AUTO) 61 % (42-75); PLATELET COUNT 246 x10^3/uL (130-400); RED BLOOD COUNT 2.57 x10^6/uL (4.38-5.82); RED CELL DISTRIBUTION WIDTH 17.7 % (9.4-14.8)
[2018-07-17 05:15] LABS: ALANINE AMINOTRANSFERASE 33 U/L (12-78); ALBUMIN 1.4 g/dL (3.4-5.0); ALKALINE PHOSPHATASE 116 U/L (45-117); ANION GAP 4 mmol/L (5-15); BILIRUBIN,TOTAL 0.2 mg/dL (0.2-1.0); CALCIUM 7.5 mg/dL (8.5-10.1); CREATININE 1.28 mg/dL (0.7-1.3); TOTAL PROTEIN 4.3 g/dL (6.4-8.2)
[2018-07-17] MEDS: HEPARIN 5,000 UNITS/ML, 1ML SQ SCH (12:44)
[2018-07-17] MEDS: FAMOTIDINE 20 MG/2 ML IVPush SCH (12:44)
[2018-07-17] MEDS: ASPIRIN 81 MG TABLET CHEW PO/NG SCH (12:45)
[2018-07-17] MEDS: ENALAPRILAT 1.25 MG/ML, 2ML IV PRN (12:54)
[2018-07-17] MEDS: LEVETIRACETAM 1,000 MG in SODIUM CHLORIDE 0.9% 100 ML IV SCH (13:20)
[2018-07-17] MEDS ORDERED: morphine SULFATE 10 MG/ML, 1ML IVPush PRN (17:30)
[2018-07-17] MEDS ORDERED: LORazepam 2 MG/ML, 1ML IVPush ONE (17:30)
[2018-07-17] MEDS ORDERED: morphine SULFATE 10 MG/ML, 1ML IVPush ONE (17:30)
[2018-07-17] MEDS: ATROPINE OPHTH SOLN 1%, 5ML PO PRN ×2 (18:29→19:40)
[2018-07-17] MEDS: LORazepam 2 MG/ML, 1ML IVPush PRN ×2 (19:03→19:40)
[2018-07-17] MEDS: morphine SULFATE 10 MG/ML, 1ML IVPush PRN ×2 (19:03→19:40)
== END 2018-07-18 04:46 | disposition expired | DRG 870 ==
LOC: ED 21:59 → 4WST 22:28 → CCU 07-12 11:38
PROVIDERS: ADMIT Family Medicine; ATTEND Internal Medicine
PROC: 5A1955Z Respiratory Ventilation, Greater than 96 Consecutive Hours (ICD-10-PCS; principal; 2018-07-12)
PROC: 0BH17EZ Insertion of Endotracheal Airway into Trachea, Via Natural or Artificial Opening (ICD-10-PCS; 2018-07-12)
DX: A41.9 Sepsis, unspecified organism (principal); J96.00 Acute respiratory failure, unspecified whether with hypoxia or hypercapnia; N17.0 Acute kidney failure with tubular necrosis; Z99.11 Dependence on respirator [ventilator] status; G40.201 Localization-related (focal) (partial) symptomatic epilepsy and epileptic syndromes with complex partial seizures, not intractable, with status epilepticus; B95.4 Other streptococcus as the cause of diseases classified elsewhere; D53.9 Nutritional anemia, unspecified; E83.51 Hypocalcemia; W18.39XA Other fall on same level, initial encounter; Y92.238 Other place in hospital as the place of occurrence of the external cause; Z51.5 Encounter for palliative care; Z66 Do not resuscitate; I10 Essential (primary) hypertension; N40.0 Benign prostatic hyperplasia without lower urinary tract symptoms; J44.9 Chronic obstructive pulmonary disease, unspecified; E86.0 Dehydration; F10.10 Alcohol abuse, uncomplicated; R29.6 Repeated falls; E78.5 Hyperlipidemia, unspecified; D75.89 Other specified diseases of blood and blood-forming organs; Z85.820 Personal history of malignant melanoma of skin; Z79.82 Long term (current) use of aspirin; Z79.899 Other long term (current) drug therapy; Z82.3 Family history of stroke; Z86.73 Personal history of transient ischemic attack (TIA), and cerebral infarction without residual deficits; Z87.891 Personal history of nicotine dependence; Z91.19 Patient's noncompliance with other medical treatment and regimen
CPT/HCPCS: 36415; 36600; 70450; 70551; 71045; 80048; 80053; 80061; 80202; 80307; 81001; 82105; 82140; 82306; 82378; 82607; 82746; 82803; 82962; 83605; 83735; 83970; 84478; 84484; 85025; 85610; 85730; 86301; 87040; 87070; 87077; 87081; 87086; 87181; 87186; 87205; 93005; 93306; 94002; 94003; 94640; 95812; 95813; 95816; 95819; 96360; 96361; J0295; J0696; J1165; J1644; J1953; J2543; J2704; J3360; J3370; J3411; J3475; J3480; 92523-GN; J0330; J1940; J2060; J2270; J7030; J7040; J7050; S0028